=== PATIENT | female | born 1950 | race Caucasian/White ===

== ENCOUNTER → 2017-08-08 | Outpatient (CLI) | payer MEDICARE, BC ==
[~2017-08-08] MED LIST: DOCU100 PO; ESTRADIOL TOP; EXEM25 PO; HYDACE5 PO; ONDA8ODT MM; PROG100 PO; Percocet 5-3251 EACH PO
[2017-08-10 13:11] LABS: HPV Genotype 16 Not Detected (NOTDET); HPV Genotype 18 Not Detected (NOTDET)
[2017-08-27 09:20] LABS: HPV High Risk Other Not Detected (NOTDET)
== END | disposition home or self-care (01) ==
LOC: OLS 15:45
PROVIDERS: Obstetrics & Gynecology Gynecology
DX: Z91.89 Other specified personal risk factors, not elsewhere classified (principal)
CPT/HCPCS: 87624; G0123

== ENCOUNTER → 2019-04-09 | Outpatient (CLI) | payer MEDICARE, BC ==
[2019-04-14 14:07] LABS: HPV 16 Negative (Negative); HPV 18 Negative (Negative); HPV OTHER HR TYPES Negative (Negative)
== END | disposition home or self-care (01) ==
LOC: LAB SHORT 16:20 → OLS 16:20
PROVIDERS: Obstetrics & Gynecology Gynecology
DX: Z91.89 Other specified personal risk factors, not elsewhere classified (principal)
CPT/HCPCS: 87624; G0123

== ENCOUNTER 2020-04-08 06:17 | Day surgery (SDC) | payer MEDICARE, BC ==
[~2020-04-08] VITALS: Ht 165.1 cm; Wt 93.3 kg
--- NOTE | 2020-04-08 06:41 | NUR ---
04/08/20 0641 Jamia Kaufman CHARTED BY PEDRO SHIN RN
== END 2020-04-08 08:30 | disposition home or self-care (01) ==
LOC: ORSCSDS 06:17
PROVIDERS: Orthopaedic Surgery
PROC: 01N50ZZ Release Median Nerve, Open Approach (ICD-10-PCS; principal; 2020-04-08 07:30)
DX: G56.01 Carpal tunnel syndrome, right upper limb (principal); E66.9 Obesity, unspecified; Z68.34 Body mass index [BMI] 34.0-34.9, adult; Z87.891 Personal history of nicotine dependence
CPT/HCPCS: J2250; J2704; J3010; J7120

== ENCOUNTER 2020-06-22 06:28 | Day surgery (SDC) | payer MEDICARE, BC ==
[~2020-06-22] VITALS: Ht 162.6 cm; Wt 92.2 kg
[2020-06-22] MEDS ORDERED: IBUP600 (07:19)
--- NOTE | 2020-06-22 07:39 | NUR ---
06/22/20 [address] SAYDA WARE FOR PT. 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
== END 2020-06-22 08:33 | disposition home or self-care (01) ==
LOC: ORSCSDS 06:28
PROVIDERS: Orthopaedic Surgery
PROC: 01N50ZZ Release Median Nerve, Open Approach (ICD-10-PCS; principal; 2020-06-22 08:00)
DX: G56.02 Carpal tunnel syndrome, left upper limb (principal); E66.9 Obesity, unspecified; Z68.34 Body mass index [BMI] 34.0-34.9, adult; Z87.891 Personal history of nicotine dependence; Z79.899 Other long term (current) drug therapy
CPT/HCPCS: J2250; J2704; J3010; J7120

== ENCOUNTER 2020-07-26 13:54 | Emergency (ER) | payer MEDICARE, BC ==
[~2020-07-26] VITALS: Ht 162.6 cm; Wt 90.7 kg
[~2020-07-26 13:54] MED LIST changes: +IBUP600
[2020-07-26 15:25] LABS: Calcium, Ionized (POC) 1.26 mmol/L (1.10-1.46); Chloride (POC) 107 mmol/L (98-108); Creatinine (POC) 0.6 mg/dL (0.6-1.0); Glucose (ISTAT POC) 113 mg/dL (70-99); Hemoglobin (POC) 13.9 g/dL (12.0-16.0); Potassium (POC) 4.1 mmol/L (3.5-5.5); Sodium (POC) 141 mmol/L (135-148); Total CO2 (POC) 26 mmol/L (21-32)
== END 2020-07-26 15:38 | disposition home or self-care (01) ==
LOC: ER 13:54
PROVIDERS: Physician Assistant
DX: M79.604 Pain in right leg (principal); I48.91 Unspecified atrial fibrillation; I10 Essential (primary) hypertension; K21.9 Gastro-esophageal reflux disease without esophagitis; Z87.891 Personal history of nicotine dependence
CPT/HCPCS: 36415; 80047; 85014; 93971; 99284-25

== ENCOUNTER 2022-09-20 10:16 | Day surgery (SDC) | payer MEDICARE, BC ==
[~2022-09-20] VITALS: Ht 162.6 cm; Wt 70.6 kg
[2022-09-20] VITALS (16 sets, daily range): BP systolic 94–127; BP diastolic 53–77
[~2022-09-20 10:16] MED LIST changes: +CELE200 PO; +IBUP200 PO; +OMEP20ER PO
--- NOTE | 2022-09-20 10:55 | NUR ---
WC inTO Day Surgery. History, Chart, Medications and Allergies reviewed before start of procedure.Patient confirms NPO status and agrees with scheduled surgery. Pre-Op teaching done. Pt verbalizes understanding.
--- NOTE | 2022-09-20 15:17 | NUR ---
PATIENT JUST CAME BACK FROM PACU TODAY AT 1440. POD 0 RIGHT TOTAL HIP PATIENT IS A&OX4. VS ARE WNL AND IS ON RA. PATIENT HAD A SPINAL DURING THE PROCEDURE AND HAS NO FEELING FROM THE WAIST DOWN. SHE IS UNABLE TO WIGGLE HER TOES AT THIS TIME BUT SHE CAN SLIGHTLY MOVE HER KNEES. PEDAL PULSES ARE STRONG. ON HER RIGHT HIP PATIENT HAS X3 GAUZE WITH FOAM TAPE THAT ARE C/D/I. POLAR PACK IN [place]. SHE IS TOLERATING A SMALL AMOUNT OF PO INTAKE AT THIS TIME. CALL LIGHT WITHIN REACH. AT BEDSIDE.
[2022-09-20] MEDS ORDERED: PROM25 PO (15:48)
[2022-09-20] MEDS ORDERED: OXYC5 PO (15:48)
[2022-09-20] MEDS ORDERED: XARELTO20 MG PO (15:49)
--- NOTE | 2022-09-20 16:06 | NUR ---
SHIFT SUMMARY: POD 0 RIGHT TOTAL HIP- POSTERIOR PATIENT IS ABLE TO MOVE HER LEGS AND TOES MORE SINCE ARRIVING FROM PACU. PATIENT IS REPORTING SLIGHT NUMBNESS AND TINGLING THOUGH IN BOTH LEGS. PEDAL PULSES ARE STRONG. PATIENT IS A&OX4. VS ARE WNL AND IS ON RA. PATEINT DENIES PAIN AT THIS TIME. HER RIGHT HIP HAS X3 INCISIONS WITH FOAM AND GAUZE THAT ARE C/D/I. PATIENT IS TOLERATING PO INTAKE. DENIES NAUSEA OR VOMITING. PATIENT IS LAYING IN BED WITH FAMILY AT BEDSIDE. CALL LIGHT WITHIN REACH.
[2022-09-21] VITALS (7 sets, daily range): BP systolic 95–136; BP diastolic 50–76
--- NOTE | 2022-09-21 04:11 | NUR ---
SUMMARY POD1 R CHRIS, POSTERIOR APPROACH. PATIENT IS AOX4 1 ASSIST W/GB FWW. PATIENT WORKED WITH PT AMBULATES IN [place]. POLAR YOSELIN IN PLACE, SCD'S IN PLACE. PAIN MANAGED WELL T/O SHIFT. VOIDING AND TOLERATING PO INTAKE. PLAN TO WORK WITH THERAPY AND DISCHARGE HOME TODAY, VSS, CALL LIGHT IN REACH. WILL REPORT TO DAY RN.
[2022-09-21 06:10] LABS: BASOPHILS ABSOLUTE AUTO 0.04 K/mm3 (0.00-0.23); BASOPHILS PERCENT AUTO 0 % (0-2); EOSINOPHILS ABSOLUTE AUTO 0.02 K/mm3 (0.00-0.68); EOSINOPHILS PERCENT AUTO 0 % (0-6); Hematocrit 32.7 % (33.0-51.0); Hemoglobin 10.8 g/dL (11.5-16.0); IMMATURE GRAN ABSOLUTE AUTO 0.04 K/mm3 (0.00-0.10); IMMATURE GRAN PERCENT AUTO 0 % (0-1); LYMPHOCYTES ABSOLUTE AUTO 1.18 K/mm3 (0.84-5.20); LYMPHOCYTES PERCENT AUTO 9 % (21-46); MONOCYTES ABSOLUTE AUTO 1.35 K/mm3 (0.16-1.47); MONOCYTES PERCENT AUTO 11 % (4-13); Mean Corpuscular HGB 29.7 pg (26.0-34.0); Mean Corpuscular Volume 90 fL (80-100); Mean Platelet Volume 9.4 fL (9.1-12.4); NEUTROPHILS ABSOLUTE AUTO 10.12 K/mm3 (1.96-9.15); NEUTROPHILS PERCENT AUTO 79 % (41-73); Platelet Count 253 K/mm3 (150-400); RDW Coefficient Variation 13.1 % (11.7-14.2); RDW Standard Deviation 42.8 fL (35.1-46.3); Red Blood Cell Count 3.64 M/mm3 (3.80-5.20); White Blood Cell Count 12.75 K/mm3 (4.00-11.30)
[2022-09-21 06:38] LABS: Magnesium, Blood 2.1 mg/dL (1.6-2.4)
[2022-09-21 06:44] LABS: Anion Gap Unable to Calculate mmol/L (6-16); Blood Urea Nitrogen 16 mg/dL (8-24); Bun/Creatinine Ratio 25.3 (12.0-20.0); CO2, Blood 31 mmol/L (21-32); Chloride, Blood 106 mmol/L (98-108); Creatinine, Blood 0.63 mg/dL (0.40-1.00); Glomerular Filtration Rate 94 (60-); Glucose, Blood 117 mg/dL (70-99); Potassium, Blood 4.2 mmol/L (3.5-5.5); Sodium, Blood 136 mmol/L (136-145)
--- NOTE | 2022-09-21 15:28 | NUR ---
1055 PT SITTING IN RECLINER, STATES FEELS NAUSEATED, SWEATY AND LIKE NEEDS TO HAVE BM. VS CHECKED. PT STANDBY ASSIST TO RESTROOM, NO BM AT THIS TIME. PT WITH EMESIS OF PARTIALLY DIGESTED FOOD.
--- NOTE | 2022-09-21 15:29 | NUR ---
1233 PT REPORTS CONTINUES WITH NAUSEA AND FEELING LIGHTHEADED. EMESIS OF PARTIALLY DIGESTED FOOD. PT AGAIN REPORTS FEELING LIKE NEEDS TO HAVE A BM
--- NOTE | 2022-09-21 15:31 | NUR ---
SPOKE WITH CURB WORKER AT DR MAO SALEH REGARDING PATIENT WITH CONTINUED NAYSEA AND EMESIS. PT, PTS AND PATIENTS DAUGHTER REQUESTING THAT PATENT NOT BE DISCHARGED TODAY
--- NOTE | 2022-09-21 17:59 | NUR ---
PT REPORTS FEELS SLEEPY , NO NAUSEA AT THIS TIME AND REQUESTS TURKEY SANDWICH FOR DINNER. PATIENT REPORTS FEELING MUCH BETTER BUT IS GLAD TO BE SPENDING THE NIGHT. RIGHT HIP DRESSINGS CLEAN DRY AND INTACT, MOVES EXTREMITIES SPONTANEOUSLY, DENIES NUMBNESS AND TINGLING
--- NOTE | 2022-09-22 04:12 | NUR ---
SUMMARY POD2 R CHRIS, POSTERIOR APPROACH. AQUACELS IN PLACE ON HIP ARE C/D/I. PATIENT IS 1 ASSIST FWW, GB TO AMBULATE. REPORTS NO NAUSEA OR VOMITING THIS SHIFT. DENIES NEED FOR PAIN MEDICATION T/O SHIFT. RESTING COMFORTABLY THIS SHIFT, VSS, CALL LIGHT IN REACH, REPORT TO DAY RN.
[2022-09-22 05:05] VITALS: BP 102/60
[2022-09-22 07:41] VITALS: BP 110/52
--- NOTE | 2022-09-22 10:46 | NUR ---
0915 PT DENIES NAUSEA AFTER EATING BREAKFAST
--- NOTE | 2022-09-22 12:08 | NUR ---
discharge instructions reviewed with patient. dressing supplies provided to patient. pt javed fluids and small meals without nausea. voiding clear yellow urine. using walker and standby asssist to ambulate. pt reports pain is well controlled at 06/20. denies any numbness or tinglin, right hip dressings clean, dry and intact, pt discharged to home with
== END 2022-09-22 12:10 | disposition home or self-care (01) ==
LOC: SURS 10:16 → ORSCMMR 10:16 → ORD 11:00 → ORSCMMR 11:15 → SURS 14:48 → ORSCMMR 09-22 12:10
PROVIDERS: Orthopaedic Surgery
PROC: 0SR90JA Replacement of Right Hip Joint with Synthetic Substitute, Uncemented, Open Approach (ICD-10-PCS; principal; 2022-09-20 11:15)
DX: M16.11 Unilateral primary osteoarthritis, right hip (principal); M87.9 Osteonecrosis, unspecified; Z87.891 Personal history of nicotine dependence; Z79.899 Other long term (current) drug therapy; Z85.3 Personal history of malignant neoplasm of breast
CPT/HCPCS: 36415; 72170; 80048; 83735; 85025; 94760; 97110; 97116; 97162; 97165; 97535; A9270; C1713; C1776; J0171; J0690; J0735; J1100; J1885; J2250; J2370; J2405; J2550; J2704; J2795; J3010; J7120